=== PATIENT | female | born 1935 | race Two or more races ===

== ENCOUNTER 2019-01-08 06:36 | Inpatient (IN) | payer MEDICARE, MEDICAID ==
[~2019-01-08] VITALS: Ht 170.2 cm; Wt 73.5 kg
--- NOTE | 2019-01-08 06:42 | NUR ---
ED Nurse Note: Patient brought in by ambulance from home with complaints of recent fall. Patient cites that she was taken off all her medication because she is "healthy and old". Patient notes that she did not hit her head and her discomfort is with her left lower leg in addition to her bilateral knee arthritis. Will continue to monitor and service impending orders.
--- NOTE | 2019-01-08 06:54 | Emergency Room Report ---
History of Present Illness General Chief Complaint: Lower Extremity Injury Source: Patient Present Illness HPI 83-year-old female who presents status post fall out of bed last night. Patient states that she fell and was on for about 30 minutes prior to calling over EMS. [employer] was unable to enter home. Patient complains of left hip pain. She states severe pain with any movement. Patient's pain started after fall. Patient is unsure if she hit her head. But she denies any headache, nausea, vomiting, dizziness, tinnitus, or facial pain. Return to the emergency new patient also noted small abrasion to distal left heel. She is unsure when she last had her tetanus. Allergies: Coded Allergies: ACETAMINOPHEN (Verified Allergy, Unknown, 01/08/19) IBUPROFEN (Verified Allergy, Unknown, 01/08/19) PENICILLINS (Unverified Allergy, Unknown, 01/08/19) Uncoded Allergies: PENICILLIN (Allergy, Unknown, 01/08/19) Nursing Documentation-[facility] Hx Hypertension: Yes Review of Systems Constitutional: Denies: chills, fever Eye: Denies: eye pain, blurred vision Respiratory: Denies: cough, shortness of breath Cardiovascular: Denies: chest pain, palpitations Gastrointestinal: Denies: abdominal pain, nausea Musculoskeletal: Reports: joint pain; Denies: back pain Skin: Reports: dryness, other - wound; Denies: rash Neurological: Denies: headache, seizure, focal weakness Physical Exam Vital Signs Date Time Temp Pulse Resp B/P (MAP) Pulse Ox O2 Delivery O2 Flow Rate FiO2 01/08/19 06:31 98.6 99 18 142/92 (109) 96 Room Air Sp02 EP Interpretation: reviewed, normal General Appearance: no apparent distress, alert, GCS 15, non-toxic Head: normocephalic, atraumatic Eyes: bilateral eye normal inspection, bilateral eye PERRL ENT: hearing grossly normal, normal voice, dry mucus membranes Neck: full range of motion, supple/symm/no masses Respiratory: chest non-tender, lungs clear, normal breath sounds, speaking full sentences Cardiovascular #1: regular rate, rhythm, no edema Cardiovascular #2: 2+ radial (R), 2+ radial (L), 2+ dorsalis pedis (R), 2+ dorsalis pedis (L) Gastrointestinal: normal bowel sounds, non tender, soft, non-distended, no guarding, no rebound Rectal: deferred Musculoskeletal: back normal, other - Tenderness over left hip, left leg short and externally rotated, Neurologic: alert, oriented x3, responsive, sensory intact, speech normal Psychiatric: judgement/insight normal, mood/affect normal Skin: other - 1 cm abrasion to distal left heel, mild bleeding, controlled with pressure, no surrounding erythema. Medical Decision Making ER Course 83-year-old female status post fall at home. Patient lives alone siphoner unable to enter room brought in by [facility]. Patient found to have externally rotated shortened left lower extremity. Given unwitnessed fall will perform head CT as patient is above 83 years old and unable to recollect if she hit her head. Noted hip x-ray to have occult fracture possibly on left, however noted to have impacted fracture on the right-hand side where patient fell onto her right side. Discussed findings with radiologist Dr. Cheng patient to be admitted for hip fracture. 11:17 AM. Patient's care discussed with Dr. Larsen who accept patient for admission would like Dr. Anglin for orthopedic consultation. Page made out to Dr. Anglin. Laboratory Tests Test 01/08/19 07:54 01/08/19 08:07 White Blood Count 10.4 K/UL (4.8-10.8) Red Blood Count 4.94 M/UL (4.20-5.40) Hemoglobin 11.7 G/DL (12.0-16.0) L Hematocrit 35.8 % (37.0-47.0) L Mean Corpuscular Volume 72 FL (80-99) L Mean Corpuscular Hemoglobin 23.7 PG (27.0-31.0) L Mean Corpuscular Hemoglobin Concent 32.7 G/DL (32.0-36.0) Red Cell Distribution Width 14.4 % (11.6-14.8) Platelet Count 380 K/UL (150-450) Mean Platelet Volume 5.6 FL (6.5-10.1) L Neutrophils (%) (Auto) 66.7 % (45.0-75.0) Lymphocytes (%) (Auto) 9.6 % (20.0-45.0) L Monocytes (%) (Auto) 10.5 % (1.0-10.0) H Eosinophils (%) (Auto) 12.1 % (0.0-3.0) H Basophils (%) (Auto) 1.1 % (0.0-2.0) Sodium Level 137 MMOL/L (136-145) Potassium Level 3.3 MMOL/L (3.5-5.1) L Chloride Level 103 MMOL/L (98-107) Carbon Dioxide Level 26 MMOL/L (21-32) Anion Gap 9 mmol/L (5-15) Blood Urea Nitrogen 10 mg/dL (7-18) Creatinine 0.6 MG/DL (0.55-1.30) Estimate Glomerular Filtration Rate mL/min (>60) Glucose Level 112 MG/DL (74-106) H Calcium Level 9.5 MG/DL (8.5-10.1) Total Bilirubin 0.4 MG/DL (0.2-1.0) Aspartate Amino Transferase (AST) 16 U/L (15-37) Alanine Aminotransferase (ALT) 15 U/L (12-78) Alkaline Phosphatase 94 U/L (46-116) Total Creatine Kinase 43 U/L (26-308) Troponin I 0.003 ng/mL (0.000-0.056) Total Protein 9.2 G/DL (6.4-8.2) H Albumin 3.1 G/DL (3.4-5.0) L Globulin 6.1 g/dL Albumin/Globulin Ratio 0.5 (1.0-2.7) L Urine Color Yellow Urine Appearance Clear Urine pH 6 (4.5-8.0) Urine Specific Clarence 1.020 (1.005-1.035) Urine Protein Negative (NEGATIVE) Urine Glucose (UA) Negative (NEGATIVE) Urine Ketones 1+ (NEGATIVE) H Urine Blood 1+ (NEGATIVE) H Urine Nitrite Negative (NEGATIVE) Urine Bilirubin Negative (NEGATIVE) Urine Urobilinogen 4 MG/DL (0.0-1.0) H Urine Leukocyte Esterase Negative (NEGATIVE) Urine RBC 5-10 /HPF (0 - 2) H Urine WBC 0-2 /HPF (0 - 2) Urine Squamous Epithelial Cells Occasional /LPF Urine Amorphous Sediment Few /LPF (NONE) H Urine Bacteria Few /HPF (NONE) Urine Mucus Occasional /LPF EKG Diagnostic Results EKG Time: 06:54 EP Interpretation: Normal sinus rhythm rate of 83, no ST changes consistent with ischemia Other X-Ray Diagnostic Results Other X-Ray Diagnostic Results : X-Ray ordered: hip and pelvis # of Views/Limited Vs Complete: Complete Indication: Pain EP Interpretation: Yes Impression: Other - impacted right hip fx, left hip chronic changes ?occult fx CT/MRI/US Diagnostic Results CT/MRI/US Diagnostic Results : Imaging Test Ordered: Head CT Impression Impression: Chronic and age-related changes. Negative for acute intracranial bleed or mass effect. Last Vital Signs Date Time Temp Pulse Resp B/P (MAP) Pulse Ox O2 Delivery O2 Flow Rate FiO2 01/08/19 06:31 98.6 99 18 142/92 (109) 96 Room Air Disposition: ADMITTED INPATIENT Condition: Serious Scripts No Active Prescriptions or Reported Danos Mark Marin M.D. Jan 08, 2019 06:54
--- NOTE | 2019-01-08 07:03 | NUR ---
HAND-OFF: Report given to Torsten ALEXANDRE.
--- NOTE | 2019-01-08 07:35 | NUR ---
ED Nurse Note: Pt of to CT.
--- NOTE | 2019-01-08 08:11 | NUR ---
ED Nurse Note: Boold and urine sent to lab.
[2019-01-08 08:15] LABS: BASOPHILS % (AUTO) 1.1 % (0.0-2.0); EOSINOPHILS % (AUTO) 12.1 % (0.0-3.0); HEMATOCRIT 35.8 % (37.0-47.0); HEMOGLOBIN 11.7 G/DL (12.0-16.0); LYMPHOCYTES % (AUTO) 9.6 % (20.0-45.0); MEAN CORPUSCULAR VOLUME 72 FL (80-99); MONOCYTES % (AUTO) 10.5 % (1.0-10.0); NEUTROPHILS % (AUTO) 66.7 % (45.0-75.0); PLATELET COUNT 380 K/UL (150-450); RED BLOOD COUNT 4.94 M/UL (4.20-5.40); RED CELL DISTRIBUTION WIDTH 14.4 % (11.6-14.8); WHITE BLOOD COUNT 10.4 K/UL (4.8-10.8)
--- NOTE | 2019-01-08 08:16 | NUR ---
ED Nurse Note: Pt with x-ray tech
[2019-01-08] MEDS ORDERED: LORazepam Inj 2mg/ml 1ml IM ONE (08:30)
[2019-01-08 08:33] LABS: ANION GAP 9 mmol/L (5-15); BLOOD UREA NITROGEN 10 mg/dL (7-18); CALCIUM 9.5 MG/DL (8.5-10.1); CARBON DIOXIDE 26 MMOL/L (21-32); CHLORIDE 103 MMOL/L (98-107); CREATININE 0.6 MG/DL (0.55-1.30); POTASSIUM 3.3 MMOL/L (3.5-5.1); SODIUM 137 MMOL/L (136-145)
--- NOTE | 2019-01-08 08:33 | Diagnostic Imaging Report ---
Indications: Fall, head trauma Technique: Spiral acquisitions obtained through the brain. Angled axial and coronal 5 x 5 mm slices were reconstructed. Total dose length product 1300 mGycm. CTDI vol(s) 62 mGy. Dose reduction achieved using automated exposure control Comparison: None. Findings: No acute intracranial hemorrhage or edema. No mass effect or midline shift. Normal size ventricles and extra axial CSF spaces. There is periventricular deep white matter low-attenuation, consistent with chronic microvascular ischemic change. The calvarium is intact. The mastoids are clear. The visualized sinuses are clear. Impression: Chronic and age-related changes. Negative for acute intracranial bleed or mass effect. The CT scanner at [facility] is accredited by the [employer] and the scans are performed using protocols designed to limit radiation exposure to as low as reasonably achievable to attain images of sufficient resolution adequate for diagnostic evaluation.
--- NOTE | 2019-01-08 08:35 | NUR ---
HAND-OFF: Report given to BALDOMERO Canales.
[2019-01-08 08:37] LABS: ALANINE AMINOTRANSFERASE 15 U/L (12-78); ALBUMIN 3.1 G/DL (3.4-5.0); ALBUMIN/GLOBULIN RATIO 0.5 (1.0-2.7); ALKALINE PHOSPHATASE 94 U/L (46-116); ASPARTATE AMINO TRANSFERASE 16 U/L (15-37); BILIRUBIN,TOTAL 0.4 MG/DL (0.2-1.0); CREATINE KINASE 43 U/L (26-308)
[2019-01-08 08:37] LABS: APPEARANCE,URINE CLEAR; BILIRUBIN, URINE NEGATIVE (NEGATIVE); GLUCOSE, URINE (UA) NEGATIVE (NEGATIVE); KETONES,URINE 1+ (NEGATIVE); LEUKOCYTE ESTERASE ,URINE NEGATIVE (NEGATIVE); NITRITE,URINE NEGATIVE (NEGATIVE); PH,URINE 6 (4.5-8.0); PROTEIN,URINE NEGATIVE (NEGATIVE); UROBILINOGEN,URINE 4 MG/DL (0.0-1.0)
[2019-01-08 08:38] LABS: COLOR,URINE YELLOW
--- NOTE | 2019-01-08 08:40 | NUR ---
HAND-OFF: Report taken from Torsten ALEXANDRE. switching patients for orientation.No acute distress.
--- NOTE | 2019-01-08 09:00 | NUR ---
Pt states that caregiver Chelsea [phone] be notified when being discharged for a ride.
[2019-01-08 09:02] VITALS: BP 156/72
--- NOTE | 2019-01-08 09:43 | Diagnostic Imaging Report ---
Indication: Fall, left hip pain, unable to straighten left leg Technique: 2 views of the left hip, one view the pelvis Comparison: none Findings: Exam is very limited, due to body habitus, inability to position patient optimally, osteoporosis, and overlying bowel gas. The bones are osteoporotic. There is a band of sclerosis along the right femoral neck suggesting an impacted fracture. The left hip is poorly visualized. No gross fracture or dislocation demonstrated. There are degenerative changes of the left hip. There are also degenerative changes of the right hip. There is considerable bowel gas. There are degenerative changes of the lumbosacral junction Impression: Very limited exam, as described No gross acute bony trauma of the left hip. However, note that in elderly osteoporotic patients and in particular given the limitations of this particular exam, nondisplaced hip or pelvic fractures can easily be occult Evidence of impacted fracture of the right femoral neck Bilateral degenerative changes Findings discussed by phone with Dr. Marin at the time of interpretation
--- NOTE | 2019-01-08 09:58 | Diagnostic Imaging Report ---
Indication: Cough Technique: One view of the chest Comparison: none Findings: Lungs and pleural spaces are clear. The heart size is normal. Bones are osteoporotic. There are degenerative changes of the thoracic spine Impression: No acute process
[2019-01-08 12:00] VITALS: BP 140/66
--- NOTE | 2019-01-08 12:21 | Diagnostic Imaging Report ---
Indication: Pain, status post trauma Technique: 2 views of the right hip Comparison: Pelvic radiograph performed one and one half hours earlier Findings: Band of sclerosis seen along the right femoral head neck junction is less apparent on the current exam. There is some slight irregularity of the superolateral head neck junction. There is extensive degenerative change of the hip joint. The bones are osteoporotic Impression: No definite acute bony trauma, but difficult to confidently exclude fracture of the femoral head neck junction. If clinically indicated, cross-sectional imaging may be useful to clarify
--- NOTE | 2019-01-08 12:38 | NUR ---
ED Nurse Note: Dr Mooney at bedside. Spoke to MD CRISTIAN states CT results need to come in before patient admitted to [facility].
[2019-01-08] MEDS ORDERED: Morphine Sulfate 2mg/ml Inj(IV/IM USE ONLY) IVP PRN (12:45)
[2019-01-08] MEDS ORDERED: Heparin 5000 units/ml inj SUBQ SCH (13:00)
--- NOTE | 2019-01-08 14:14 | Diagnostic Imaging Report ---
Indication: Left hip pain, status post fall, abnormal right hip on prior radiographs Technique: Noncontrast spiral acquisitions obtained through the pelvis. Multiplanar reconstructions generated. Total dose length product 1133 mGycm. CTDIvol(s) 29 mGy. Dose reduction achieved using automated exposure control Comparison: Reference made to plain radiographs of earlier the same day Findings: The left hip is rotated posteriorly. However, no definite fracture deformity is evident. No acute fracture line is demonstrated. There are severe degenerative changes of the left hip, with marked peripheral osteophytes on both sides of the hip joint, subchondral sclerosis and subchondral cyst formation. In addition, there does appear to be in place is ankylosis of the left femoral head and acetabulum. Less advanced was still somewhat extensive degenerative changes of the right hip are noted. There is likewise joint space loss, subchondral sclerosis, subchondral cyst formation as well as osteophytes and some remodeling of the acetabular articular surface. No definite acute fracture demonstrated. No pelvic fracture demonstrated. No significant soft tissue contusion is demonstrated. The uterus is absent. The included pelvic viscera are otherwise unremarkable. Impression: No definite acute bony trauma Extensive degenerative changes, as detailed above The CT scanner at [facility] is accredited by the [employer] and the scans are performed using protocols designed to limit radiation exposure to as low as reasonably achievable to attain images of sufficient resolution adequate for diagnostic evaluation.
--- NOTE | 2019-01-08 15:16 | NUR ---
ED Nurse Note: per Dr. Marin, pt is ok to go floor unit.
--- NOTE | 2019-01-08 15:32 | NUR ---
Pt's caregiver Chelsea notified of pts admission. Report given to Kaci ALEXANDRE. Pt reaffirmed that not taking any home meds.
[2019-01-08 16:00] VITALS: BP 137/75
--- NOTE | 2019-01-08 16:00 | NUR ---
NURSE NOTES: Pt admitted to unit. Transferred from [facility] to [facility] without incident with 2 person assist. Patient is stable. AOx4, able to verbalize needs. Skin is clean and dry. Patient's body is dry and flaky, patient stated, "I have eczema all over". Patient's caregiver contacted regarding admission and allergies. Patient stated, "I made a mistake, I'm not allergic to acetaminophen." Allergies confirmed by caregiver Chelsea who verbalized that patient does not have an allergy to acetaminophen and takes Tylenol at home as needed without displaying any reactions. Patient oriented to room, call light, and unit. Patient encouraged to use call light for assistance, verbalized understanding. Patient is in bed in locked and lowest position with call light within reach, all safety measures provided. Will continue to monitor. All needs met at this time.
[2019-01-08] MEDS: Heparin 5000 units/ml inj SUBQ SCH (16:53)
[2019-01-08] MEDS: Docusate 100mg cap ORAL SCH (17:21)
--- NOTE | 2019-01-08 18:15 | History and Physical Report ---
DATE OF ADMISSION: 01/08/2019 CHIEF COMPLAINT: Right hip fracture HISTORY OF PRESENT ILLNESS: The patient is an pleasant 83-year-old female. She has a prior history of hypertensive heart disease but according to her she has been taken off of her antihypertensive. She was in bed when she rolled out and actually fell onto her right hip. She had severe pain, was unable to ambulate, presented to the emergency room. On evaluation there, x-ray showed an impacted right hip fracture. She is now admitted for further evaluation and care. PAST MEDICAL HISTORY: As above. PAST SURGICAL HISTORY: None. CURRENT MEDICATIONS: None. FAMILY HISTORY: Significant for sister who had bypass surgery x2 as well as another sister who heart arrhythmias. SOCIAL HISTORY: Negative for tobacco, ethanol, or drugs. REVIEW OF SYSTEMS: GENERAL: No fevers or chills. HEENT: No headaches or visual changes. CARDIOPULMONARY: No chest pain or shortness of breath. GASTROINTESTINAL: No nausea or vomiting. GENITOURINARY: No urgency, frequency. MUSCULOSKELETAL: No joint pain or swelling. Positive right hip pain. NEUROLOGIC: No evidence of seizures. PHYSICAL EXAMINATION: VITAL SIGNS: Temperature 98 degrees, pulse 79, respirations 18, and blood pressure 140/66. GENERAL: The patient is well developed, no apparent distress. HEART: Regular rate and rhythm. LUNGS: Clear. ABDOMEN: Soft, nontender, nondistended. EXTREMITIES: Without clubbing or cyanosis. The patient has minimal range of motion in the right hip due to pain. LABORATORY AND DIAGNOSTIC DATA: EKG showed sinus rhythm. Sodium 137, potassium 3.3. Troponin 0.003. Urine was clear. Head CT was negative. ASSESSMENT: This is a pleasant female with prior history of hypertensive heart disease admitted with mechanical fall out of bed and impacted right hip fracture. PLAN: Check coagulations. Orthopedics consultation. Cardiology clearance. We will continue IV and oral pain medications as needed. Further plan and care will be determined after discussion with the consulting orthopedist. Jason Husain M.D. DR: Devin JOB#: [id number] CC:
--- NOTE | 2019-01-08 19:29 | NUR ---
NURSE NOTES: Patient asleep in bed, no respiratory distress noted, no sign of pain. Call light in reach. Bed in lowest position, lock engaged and alarm on. Will continue to monitor.
--- NOTE | 2019-01-08 19:30 | NUR ---
HAND-OFF: Report given to Carey ALEXANDRE. Patient is stable.
[2019-01-08 20:00] VITALS: BP 113/63
[2019-01-08 21:21] LABS: INR 1.1 (0.9-1.1)
[2019-01-09] VITALS: BP 116/67
--- NOTE | 2019-01-09 01:45 | Consultation ---
DATE OF CONSULTATION: 01/08/2019 ORTHOPEDIC CONSULTATION CONSULTING PHYSICIAN: Walter Anglin M.D. CHIEF COMPLAINT: Right hip pain. HISTORY OF PRESENT ILLNESS: The patient is a pleasant 83-year-old female who fall. She was diagnosed with a femoral neck fracture. Orthopedic consultation was obtained for further care and recommendation. PAST MEDICAL HISTORY: Reviewed from the intake chart. PAST SURGICAL HISTORY: Reviewed from the intake chart. MEDICATIONS: Reviewed from the intake chart. PHYSICAL EXAMINATION: GENERAL: The patient is resting comfortably in examination bed. She reports minimal pain. VITAL SIGNS: Afebrile. Stable vital signs. PELVIC: Right hip examination shows pain with internal and external rotation. Posterior calf is soft. Neurovascular exam is normal. Left hip examination shows it is internally rotated hip. Neurovascular exam is grossly intact. CT scan of the hip shows a fracture through the femoral head, rather than the neck. She has pretty end-stage arthritis. Left hip shows some general end-stage arthritis with internal deformity of the left hip. DISCUSSION: At this point, I had a lengthy discussion with the patient. She does have a fracture, but unfortunately the location of the fracture does not make it amenable to closed reduction and percutaneous pinning. The only option is consideration for either hemiarthroplasty or in her case total hip arthroplasty given the superior arthritis that she has. At this point, the patient would like to see how she does without surgery, which I do not think is unreasonable. In the worst case scenario, if she has more pain or difficulty performing activities of daily living, then the surgery would still be the same regardless. At this point, the patient actually feels comfortable and therefore we will try and attempt to conservative treatment. She can be partial weightbearing on the right leg as tolerated with a walker. If she has significant pain and inability to ambulate, then she would be a candidate for total hip arthroplasty. Walter Anglin M.D. DR: AKIL JOB#: [id number] CC: DEVIKA
--- NOTE | 2019-01-09 02:00 | Consultation ---
DATE OF CONSULTATION: 01/08/2019 CARDIOLOGY CONSULTATION CONSULTING PHYSICIAN: Kingsley Larsen M.D. REQUESTING PHYSICIAN: Jason Husain M.D. REASON: Hip fracture, evaluate for kathryn-operative cardiovascular risk assessment. HISTORY OF PRESENT ILLNESS: This is an 83-year-old female. She has a history of hypertension, but has been off medications for several months due to low range blood pressure, not requiring therapy. She had been in her usual state of health. Last night, she apparently fell out of bed. She was unable to ambulate thereafter, came to the emergency room and was noted to have an impacted right hip fracture by x-ray study. She denied loss of consciousness or other trauma at the time of the event is noted. PAST MEDICAL HISTORY: Includes prior appendectomy, hysterectomy, and hypertension as well as osteoarthritis and chronic eczema. ALLERGIES: None. MEDICATIONS: Reviewed and reconciled. SOCIAL HISTORY: Negative for smoking, alcohol, or substance abuse. FAMILY HISTORY: Notable for sister with coronary artery disease and another sister with irregular heart beats. REVIEW OF SYSTEMS: No fevers or chills. No history of asthma or abnormal blood clotting. No history of seizure or stroke. No history of diabetes or thyroid impairment. No change in bowel habits. No history of kidney dysfunction, incontinence, or dysuria. PHYSICAL EXAMINATION: VITAL SIGNS: Afebrile, blood pressure 142/92, pulse 99, respirations 18, and oxygen saturation room air 96%. SKIN: With diffuse eczema, abrasion to right heel. HEENT: Conjunctivae pink. Oropharynx clear. NECK: Supple. Jugular venous pressure normal. No bruits or thyromegaly. LUNGS: Clear. BREASTS: No breast masses. CARDIAC: Regular rhythm and rate. Normal S1, S2 with a fourth heart sound. ABDOMEN: Soft, nontender. EXTREMITIES: Without edema. There is slight internal rotation of the right hip. No open wound. LABORATORY AND DIAGNOSTIC DATA: White count 10, hemoglobin 11.7. Potassium 3.3. Troponin negative. Glucose 112, BUN 10, creatinine 0.6. Albumin 3.1. Chest x-ray with no acute process. Head CT with no acute process. IMPRESSION: 1. Non-syncopal fall. 2. Acute right hip fracture. 3. History of hypertension, now reportedly stable off medications. 4. Hypokalemia. 5. Mild protein-calorie malnutrition. PLAN: 1. Hydration. 2. Potassium replacement. 3. Check electrocardiogram. 4. DVT prophylaxis. 5. Skin care. 6. Protein supplement. 7. Await final studies, but would not expect any increased cardiovascular risk under general anesthesia for orthopedic surgery of this right hip fracture. Kingsley Larsen M.D. DR: PB JOB#: [id number] CC:
[2019-01-09 04:00] VITALS: BP 102/59
[2019-01-09 06:05] LABS: HEMATOCRIT 33.5 % (37.0-47.0); HEMOGLOBIN 11.1 G/DL (12.0-16.0); MEAN CORPUSCULAR VOLUME 72 FL (80-99); PLATELET COUNT 385 K/UL (150-450); RED BLOOD COUNT 4.64 M/UL (4.20-5.40); RED CELL DISTRIBUTION WIDTH 14.4 % (11.6-14.8); WHITE BLOOD COUNT 7.7 K/UL (4.8-10.8)
[2019-01-09 06:43] LABS: ALANINE AMINOTRANSFERASE 9 U/L (12-78); ALBUMIN 2.5 G/DL (3.4-5.0); ALBUMIN/GLOBULIN RATIO 0.5 (1.0-2.7); ALKALINE PHOSPHATASE 79 U/L (46-116); ANION GAP 5 mmol/L (5-15); ASPARTATE AMINO TRANSFERASE 14 U/L (15-37); BILIRUBIN,TOTAL 0.4 MG/DL (0.2-1.0); BLOOD UREA NITROGEN 6 mg/dL (7-18); CALCIUM 9.1 MG/DL (8.5-10.1); CARBON DIOXIDE 26 MMOL/L (21-32); CHLORIDE 104 MMOL/L (98-107); CREATININE 0.7 MG/DL (0.55-1.30); POTASSIUM 3.8 MMOL/L (3.5-5.1); SODIUM 135 MMOL/L (136-145)
--- NOTE | 2019-01-09 07:55 | NUR ---
NURSE NOTES: Received reprot from BALDOMERO Bacon. Patient in bed resting, no active s/s cardiac, respiratory distress noticed at this time. Patient on room air, AOx4, IV on right AC 20G, asymptomatic, patent, intact. Bd in lowest position, side rails upx3, call light within reach, bed alarm on. Endorsed partial weight bearing on right leg. Will continue to monitor.
[2019-01-09 08:00] VITALS: BP 122/68
--- NOTE | 2019-01-09 08:13 | NUR ---
HAND-OFF: Report given to BALDOMERO Beard.
[2019-01-09] MEDS: Vitamin D 1000 IU Tab ORAL SCH (08:25)
[2019-01-09] MEDS: Docusate 100mg cap ORAL SCH ×2 (08:25→17:04)
[2019-01-09] MEDS: Heparin 5000 units/ml inj SUBQ SCH ×2 (08:26→20:31)
--- NOTE | 2019-01-09 08:32 | General Progress Note ---
Assessment/Plan Problem List: (1) Hip fracture, right ICD Codes: S72.001A - Fracture of unspecified part of neck of right femur, initial encounter for closed fracture SNOMED: 594923227 (2) Multiple injuries due to trauma ICD Codes: T07.XXXA - Unspecified multiple injuries, initial encounter SNOMED: 168009064 Status: stable Assessment/Plan: d/w ortho- has fracture of right femoral head but denies significant pain. will mobilize as tolerated with therapy may need surgical intervention depending how pt does with therapy Subjective ROS Limited/Unobtainable: No Constitutional: Reports: no symptoms HEENT: Reports: no symptoms Cardiovascular: Reports: no symptoms Respiratory: Reports: no symptoms Gastrointestinal/Abdominal: Reports: no symptoms Genitourinary: Reports: no symptoms Neurologic/Psychiatric: Reports: no symptoms Endocrine: Reports: no symptoms Hematologic/Lymphatic: Reports: no symptoms Allergies: Coded Allergies: IBUPROFEN (Verified Allergy, Unknown, 01/08/19) PENICILLINS (Unverified Allergy, Unknown, 01/08/19) Uncoded Allergies: PENICILLIN (Allergy, Unknown, 01/08/19) All Systems: reviewed and negative except above Subjective no new complaints. +hip pain. Objective Last 24 Hour Vital Signs Date Time Temp Pulse Resp B/P (MAP) Pulse Ox O2 Delivery O2 Flow Rate FiO2 01/09/19 04:00 97.8 91 18 102/59 (73) 97 01/09/19 00:00 98.8 88 19 116/67 (83) 97 01/08/19 21:00 Room Air 01/08/19 20:00 98.8 92 18 113/63 (80) 98 01/08/19 16:00 97.3 87 20 137/75 (95) 97 01/08/19 15:59 Room Air 01/08/19 15:44 98.7 82 20 128/68 100 Room Air 01/08/19 12:00 98.6 79 18 140/66 100 Room Air 01/08/19 09:46 81 19 Room Air 100 01/08/19 09:02 98.7 81 19 156/72 100 Room Air Intake and Output 01/08/19 01/09/19 19:00 07:00 Intake Total 500 ml Balance 500 ml IV Total 500 ml # Voids 1 1 Laboratory Tests 01/08/19 20:00: Prothrombin Time 11.2, Prothromb Time International Ratio 1.1, Activated Partial Thromboplast Time 26 01/09/19 05:00: White Blood Count 7.7, Red Blood Count 4.64, Hemoglobin 11.1L, Hematocrit 33.5L , Mean Corpuscular Volume 72L, Mean Corpuscular Hemoglobin 24.0L, Mean Corpuscular Hemoglobin Concent 33.2, Red Cell Distribution Width 14.4, Platelet Count 385, Mean Platelet Volume 5.6L, Neutrophils (%) (Auto) , Lymphocytes (%) ( Auto) , Monocytes (%) (Auto) , Eosinophils (%) (Auto) , Basophils (%) (Auto) , Neutrophils % (Manual) [Pending], Lymphocytes % (Manual) [Pending], Platelet Estimate [Pending], Platelet Morphology [Pending], Sodium Level 135L, Potassium Level 3.8, Chloride Level 104, Carbon Dioxide Level 26, Anion Gap 5, Blood Urea Nitrogen 6L, Creatinine 0.7, Estimat Glomerular Filtration Rate , Glucose Level 110H, Calcium Level 9.1, Magnesium Level 2.2, Total Bilirubin 0.4, Aspartate Amino Transf (AST/SGOT) 14L, Alanine Aminotransferase (ALT/SGPT) 9L, Alkaline Phosphatase 79, Total Protein 8.0, Albumin 2.5L, Globulin 5.5, Albumin/Globulin Ratio 0.5L, Thyroid Stimulating Hormone (TSH) 2.268 Height (Feet): 5 Height (Inches): 7.00 Weight (Pounds): 162 General Appearance: WD/WN, alert Neck: supple Cardiovascular: regular rhythm Respiratory/Chest: chest wall non-tender, lungs clear, normal breath sounds, no respiratory distress Abdomen: normal bowel sounds, non tender, soft, no organomegaly Edema: no edema noted Arm (L), no edema noted Arm (R), no edema noted Leg (L), no edema noted Leg (R), no edema noted Pedal (L), no edema noted Pedal (R), no edema noted Generalized Jason Husain MD Jan 09, 2019 08:32
[2019-01-09 12:00] VITALS: BP 113/62
--- NOTE | 2019-01-09 12:19 | NUR ---
NURSE NOTES: Spoke to regarding patient and new order received. Order read back and carried out.
--- NOTE | 2019-01-09 14:43 | NUR ---
P.T Note : Jason received from Dr. Anglin. Pt on 50% PWB RLE secondary to R hip fx. P.T evaluation completed and treatment initiated. Please refer to P.T evaluation for current functional status. Pt is alert, O x 4 , pleasant and cooperative. Pt reports c/o pain and stiffness particularly on the L hip with movement more than the R hip despite findings of the R femoral neck Fx 06/28 . Pt needed extended time and MIN A X 1 to initiate and complete spine to/from sitting and sitting to/from standing. Pt was able to ambulate short distance using the FWW , MIN A x 1 ( approx. 8 steps ) presenting slow pace and labored gait. Overall Fair endurance/tolerance to activities. Pt will benefit from skilled P.T service to improve strength, balance and activity tolerance to increase mobility independence and be able to comply with PWB compliance on RLE. Recommend SNF for further rehab intervention VS home with P.T.
[2019-01-09 16:00] VITALS: BP 121/69
--- NOTE | 2019-01-09 17:03 | Cardiology Report ---
APPROVED REPORT EKG Measurement Heart [id number] Normal sinus rhythm Right atrial enlargement Cannot rule out Anterior infarct, age undetermined Abnormal ECG
--- NOTE | 2019-01-09 19:30 | NUR ---
HAND-OFF: Report given to BALDOMERO Varela.
[2019-01-09 20:00] VITALS: BP 132/76
[2019-01-10 00:14] VITALS: BP 136/74
--- NOTE | 2019-01-10 00:42 | NUR ---
NURSE NOTE: Pt is A/Ox4 with stable VS. Orders reviewed and physical assessment completed. Pt complained of pain in her left leg but denied offer of PRN pain meds. Pt expressed desire to get rest. Bed alarm is activated and call cruz is within reach. Pt is continent x2. Pt instructed to call for assistance when feeling the urge to void vs voiding in the bed, pt verbalized understanding. Will continue to monitor.
[2019-01-10 04:10] VITALS: BP 136/73
--- NOTE | 2019-01-10 04:30 | Progress Note ---
DATE: 01/09/2019 CARDIOLOGY PROGRESS NOTE SUBJECTIVE: The patient is not having any significant pain. She is considering what she would want to pursue right hemiarthroplasty versus conservative management and healing at home with partial weightbearing. A preoperative echocardiogram was performed revealing normal ejection fraction, mild mitral regurgitation, and normal PA systolic pressure. OBJECTIVE: VITAL SIGNS: Blood pressure 113/62, heart rate 91, respirations 16, afebrile. LUNGS: Clear. CARDIAC: Regular. Normal S1, S2. A 1/6 systolic apical murmur. ABDOMEN: Soft. EXTREMITIES: No edema. LABORATORY DATA: White count 7.7, hemoglobin 11.1. Potassium 3.8, magnesium 2.2. Albumin 2.5. IMPRESSION: 1. Mechanical fall. 2. Right hip fracture. 3. Hypokalemia, corrected. 4. Hypertension, controlled. 5. Moderate to severe protein-calorie malnutrition requiring protein supplements. 6. Limited weightbearing due to fracture. PLAN: 1. Protein supplement. 2. Pain control as needed. 3. No additional antihypertensives presently required. 4. DVT prophylaxis. Kingsley Larsen M.D. DR: RADHA JOB#: [id number] CC:
--- NOTE | 2019-01-10 05:30 | Progress Note ---
DATE: 01/09/2019 SUBJECTIVE: The patient is doing well. She had been in some therapy today where she was getting them at the bedside. She reports minimal pain. OBJECTIVE: GENERAL: Examination shows some pain with internal and external rotation of the right hip. The patient is resting comfortably on the exam room table. VITAL SIGNS: Afebrile. Stable vital signs. ASSESSMENT: Right femoral head fracture. DISCUSSION: At this point, I discussed with her again that she does have femoral head fracture. The only treatment for this given her severe arthritis is consideration for total hip arthroplasty. At this point, she wants to continue with conservative treatment and see how much her pain she truly is. She got up today with a therapist at the bedside and was much discomfort. I discussed with her we will continue to monitor and see how she does from clinical point of view. If she has more pain and cannot tolerate conservative treatment, then consideration for total hip arthroplasty will be reasonable. Alternatively, if she does not not have significant pain, then she can continue partial weightbearing on the right leg understanding that at some point she may develop avascular necrosis of the head, which may ultimately necessitate total hip arthroplasty. Walter Anglin M.D. DR: WANDA JOB#: [id number] CC: DEVIKA
--- NOTE | 2019-01-10 07:22 | NUR ---
HAND-OFF: Report given to
--- NOTE | 2019-01-10 07:46 | General Progress Note ---
Assessment/Plan Problem List: (1) Hip fracture, right ICD Codes: S72.001A - Fracture of unspecified part of neck of right femur, initial encounter for closed fracture SNOMED: 052791488 (2) Multiple injuries due to trauma ICD Codes: T07.XXXA - Unspecified multiple injuries, initial encounter SNOMED: 360815256 Status: stable Assessment/Plan: pain rx pt/ot dvt prophylaxis still undecided about surgery Subjective ROS Limited/Unobtainable: No Constitutional: Reports: no symptoms HEENT: Reports: no symptoms Cardiovascular: Reports: no symptoms Respiratory: Reports: no symptoms Gastrointestinal/Abdominal: Reports: no symptoms Genitourinary: Reports: no symptoms Neurologic/Psychiatric: Reports: no symptoms Endocrine: Reports: no symptoms Hematologic/Lymphatic: Reports: no symptoms Allergies: Coded Allergies: IBUPROFEN (Verified Allergy, Unknown, 01/08/19) PENICILLINS (Unverified Allergy, Unknown, 01/08/19) Uncoded Allergies: PENICILLIN (Allergy, Unknown, 01/08/19) All Systems: reviewed and negative except above Subjective no new complaints. +hip pain. only able to walk 8 steps with therapist due to severe pain Objective Last 24 Hour Vital Signs Date Time Temp Pulse Resp B/P (MAP) Pulse Ox O2 Delivery O2 Flow Rate FiO2 01/10/19 04:10 98.6 89 16 136/73 (94) 97 01/10/19 00:14 99.0 86 16 136/74 (94) 97 01/09/19 21:00 Room Air 01/09/19 20:00 98.8 87 16 132/76 (94) 98 01/09/19 16:00 98.1 87 15 121/69 (86) 97 01/09/19 12:00 98.2 91 16 113/62 (79) 97 01/09/19 09:00 Room Air 01/09/19 08:00 98.4 86 16 122/68 (86) 97 Intake and Output 01/09/19 01/10/19 19:00 07:00 Intake Total 200 ml Balance 200 ml Intake Oral 200 ml # Voids 4 1 Height (Feet): 5 Height (Inches): 7.00 Weight (Pounds): 162 General Appearance: WD/WN, alert Neck: supple Cardiovascular: normal rate Respiratory/Chest: lungs clear Abdomen: normal bowel sounds, non tender, soft, no organomegaly Edema: no edema noted Arm (L), no edema noted Arm (R), no edema noted Leg (L), no edema noted Leg (R), no edema noted Pedal (L), no edema noted Pedal (R), no edema noted Generalized Jason Husain MD Jan 10, 2019 07:46
[2019-01-10 08:00] VITALS: BP 127/77
--- NOTE | 2019-01-10 08:00 | NUR ---
NURSE NOTES: Received report from Nichole RN, pt a/a/o laying in bed eating breakfast with no signs of distress or other issues at this time. IV on the left AC gauge#20 heplock. per report pt able to give some steps with staff assistance. call light within reach, bed in lowest position. side rales up x2. I will f/u as needed.
[2019-01-10] MEDS: Docusate 100mg cap ORAL SCH ×2 (08:43→17:21)
[2019-01-10] MEDS: Vitamin D 1000 IU Tab ORAL SCH (08:43)
[2019-01-10] MEDS: Heparin 5000 units/ml inj SUBQ SCH ×2 (08:44→20:51)
--- NOTE | 2019-01-10 08:54 | NUR ---
CASE MANAGEMENT:REVIEW 83 YR OLD FEMALE BIBA FROM HOME CC; FALL SI: HIP FRACTURE 98.6 99 18 142/92 96% ON RA K-3.3 IS: 500CC NS BOLUS ATIVAN IM KCL PO XRAY HIP : TO MED/SURG 3 EAST PLAN: ORTHO CONSULT
--- NOTE | 2019-01-10 09:06 | NUR ---
DISCHARGE PLANNING PATIENT HAS BEEN REFERRED TO [facility] T: [phone] F: [phone] CLINICALS FAXED
[2019-01-10 12:00] VITALS: BP 117/67
[2019-01-10 16:00] VITALS: BP 132/73
--- NOTE | 2019-01-10 19:33 | NUR ---
HAND-OFF: Report given to Nichole ALEXANDRE. pt ion stable condition.
[2019-01-10 20:30] VITALS: BP 139/73
[2019-01-11 00:16] VITALS: BP 122/68
--- NOTE | 2019-01-11 02:00 | Progress Note ---
DATE: 01/10/2019 CARDIOLOGY PROGRESS NOTE SUBJECTIVE: The patient had some hip pain with ambulation today. She still is requesting to avoid surgery if she can. She was advised as to the risk of limited mobility for several weeks to heal including the risk of DVT. OBJECTIVE: VITAL SIGNS: Blood pressure 136/73, pulse 89, and respirations 16. LUNGS: Clear. CARDIAC: Regular. Normal S1, S2. ABDOMEN: Soft. EXTREMITIES: No edema. IMPRESSION: 1. Stable blood pressure parameters off all medications. 2. Right hip fracture secondary to mechanical fall. 3. Microcytic anemia. 4. Hypokalemia, corrected. 5. Moderate protein-calorie malnutrition. PLAN: 1. Await final decision regarding surgery. 2. Check iron panel. 3. Recheck potassium and magnesium levels. 4. Mobilization with limited weightbearing. 5. Protein supplement. 6. No current indication for additional antihypertensive drugs. Kingsley Larsen M.D. DR: ABEL JOB#: [id number] CC:
[2019-01-11 04:01] VITALS: BP 155/84
[2019-01-11 06:18] LABS: BASOPHILS % (AUTO) 0.9 % (0.0-2.0); EOSINOPHILS % (AUTO) 11.6 % (0.0-3.0); HEMATOCRIT 31.1 % (37.0-47.0); HEMOGLOBIN 10.2 G/DL (12.0-16.0); LYMPHOCYTES % (AUTO) 10.9 % (20.0-45.0); MEAN CORPUSCULAR VOLUME 72 FL (80-99); MONOCYTES % (AUTO) 11.3 % (1.0-10.0); NEUTROPHILS % (AUTO) 65.3 % (45.0-75.0); PLATELET COUNT 312 K/UL (150-450); RED BLOOD COUNT 4.31 M/UL (4.20-5.40); RED CELL DISTRIBUTION WIDTH 14.5 % (11.6-14.8); WHITE BLOOD COUNT 9.4 K/UL (4.8-10.8)
[2019-01-11 06:30] LABS: % IRON SATURATION 9 % (15-50); IRON 26 ug/dL (50-175); TOTAL IRON BINDING CAPACITY 284 ug/dL (250-450)
[2019-01-11 06:37] LABS: ANION GAP 9 mmol/L (5-15); BLOOD UREA NITROGEN 7 mg/dL (7-18); CALCIUM 8.8 MG/DL (8.5-10.1); CARBON DIOXIDE 25 MMOL/L (21-32); CHLORIDE 103 MMOL/L (98-107); CREATININE 0.6 MG/DL (0.55-1.30); POTASSIUM 3.7 MMOL/L (3.5-5.1); SODIUM 137 MMOL/L (136-145)
[2019-01-11] MEDS ORDERED: CLONIDINE HCL0.1 MG ORAL (07:23)
[2019-01-11] MEDS ORDERED: COLACE100 MG ORAL (07:23)
[2019-01-11] MEDS ORDERED: HEPARIN SO5000 UNIT2 SUBQ (07:23)
[2019-01-11] MEDS ORDERED: ACETAMINOPHEN325 M1 ORAL (07:23)
[2019-01-11] MEDS ORDERED: VITAMIN D325 MCG ORAL (07:23)
[2019-01-11] MEDS ORDERED: MORPHINE SU2 MG/1 M1 IVP (07:23)
--- NOTE | 2019-01-11 07:24 | NUR ---
HAND-OFF: Report given to Zeeshan.
--- NOTE | 2019-01-11 07:25 | NUR ---
NURSE NOTES: Received pt in bed, AAO x 3. Room air. No c/o of pain/distress. IV n R AC 20g intact and patent, with saline lock. Bed in the lowest, locked, and alarm primary montessori teacher light within reach. Will continue to monitor
[2019-01-11 08:00] VITALS: BP 126/75
--- NOTE | 2019-01-11 08:30 | Discharge Summary ---
DATE OF ADMISSION: 01/08/2019 DATE OF DISCHARGE: 01/11/2019 ADMISSION DIAGNOSES: 1. Right hip fracture. 2. History of hypertension. 3. Osteoarthritis. DISCHARGE DIAGNOSES: 1. Right hip fracture. 2. History of hypertension. 3. Osteoarthritis. HOSPITAL COURSE: The patient is a pleasant female, who sustained a fall out of bed. She fell onto her right hip. She was diagnosed with a fracture of the head of the right femur. She was seen by Orthopedics, who recommended a total hip arthroplasty regarding the patient's advanced osteoarthritis. The patient declined. She did have some pain, but was able to ambulate. In light of her symptoms and her resistance to surgery, the orthopedic discussed further conservative treatment with therapy. If she failed, she is agreeable to undergoing a full total hip arthroplasty. She will go to a [facility] for therapy. She will be followed closely there. If she fails, she will be referred back to the orthopedic surgeon for a definitive total hip arthroplasty. The patient was in agreement with this plan of care. DISCHARGE MEDICATIONS: Please see discharge medication list for discharge medications. DIET: Regular diet. ACTIVITIES: Ad-herminio. Jason Husain M.D. DR: LALITA JOB#: [id number] CC:
[2019-01-11] MEDS: Vitamin D 1000 IU Tab ORAL SCH (09:27)
[2019-01-11] MEDS: Docusate 100mg cap ORAL SCH (09:27)
[2019-01-11] MEDS: Heparin 5000 units/ml inj SUBQ SCH (09:28)
[2019-01-11 12:00] VITALS: BP 115/62
--- NOTE | 2019-01-11 14:10 | NUR ---
NURSE NOTES: Patient was discharged to [facility] via ambulance in stable condition. Report was given to BALDOMERO Nguyen. ID and IV was removed. No s/s of infection on the removal site. Skin intact. Notified family member for patient's discharge. Belongings were accounted for. Prescriptions and discharge instructions were given.
--- NOTE | 2019-01-11 18:30 | Progress Note ---
DATE: 01/11/2019 CARDIOLOGY PROGRESS NOTE SUBJECTIVE: The patient has no chest pain. No shortness of breath. Hip pain is somewhat better. She is mobilizing. She is having difficulty with partial weight bearing. She will need additional therapy for that. PHYSICAL EXAMINATION: VITAL SIGNS: Blood pressure control adequate off medications 126/75, . T-max 99.6. LUNGS: Clear. CARDIAC: Regular. ABDOMEN: Soft. EXTREMITIES: No edema. Hips without open wounds. LABORATORY AND DIAGNOSTIC DATA: Chemistry panel within normal limits. Iron panel reveals saturation of 9%, hemoglobin is 10.2. IMPRESSION: 1. Right hip fracture due to mechanical fall. 2. History of hypertension now stable off medications. 3. Iron-deficiency anemia. 4. Vitamin D deficiency. 5. Osteoarthritis. 6. Eczema. PLAN: 1. Rehabilitation. 2. Pain control. 3. Vitamin supplementation. 4. Readmitted for arthroplasty if the patient is unable to tolerate pain and partial right leg weightbearing status. Kingsley Larsen M.D. DR: Raymundo JOB#: [id number] CC:
--- NOTE | 2019-01-13 10:44 | Cardiology Report ---
APPROVED REPORT EXAM: Two-dimensional and M-mode echocardiogram with Doppler and color Doppler. INDICATION Preop eval M-Mode DIMENSIONS IVSd1.1 (0.7-1.1cm)Left Atrium (MM)3.6 (1.6-4.0cm) LVDd3.9 (3.5-5.6cm)Aortic Root3.0 (2.0-3.7cm) PWd1.1 (0.7-1.1cm)Aortic Cusp Exc.1.7 (1.5-2.0cm) LVDs2.6 (2.5-4.0cm) PWs1.4 cm Normal left ventricular chamber size, systolic function and wall motion. Left ventricular ejection fraction estimated to be 65 %. Borderline left ventricular hypertrophy. Anterior Echo-free space, may be due to pericardial fat or effusion. Left atrial size at upper limits of normal. Right cardiac chamber sizes are within normal limits. Focal aortic valve sclerosis with adequate cusp excursion. Thickened mitral valve leaflets with normal excursion. Mitral annulus and aortic root calcification. Pulmonic valve not well visualized. Normal tricuspid valve structure. IVC at normal size with physiologic collapse. A color flow and spectral Doppler study was performed and revealed: Trace aortic regurgitation. Mild mitral regurgitation. Mitral diastolic velocities suggest reduced left ventricular relaxation c/w mild LV diastolic dysfunction (Grade I). Trace tricuspid regurgitation. Tricuspid systolic velocities suggests peak right ventricular systolic pressure of 26 mmHg. Pulmonic regurgitation present.
== END 2019-01-11 14:15 | DRG 536 ==
LOC: EDBD 06:36 → EMR 07:25 → 3E 10:22 → EDBEDREQ 12:19
DX: S72.001A Fracture of unspecified part of neck of right femur, initial encounter for closed fracture (principal); E44.1 Mild protein-calorie malnutrition; W06.XXXA Fall from bed, initial encounter; Y92.003 Bedroom of unspecified non-institutional (private) residence as the place of occurrence of the external cause; E87.6 Hypokalemia; I11.9 Hypertensive heart disease without heart failure; M19.90 Unspecified osteoarthritis, unspecified site; D50.9 Iron deficiency anemia, unspecified; L30.9 Dermatitis, unspecified; Z53.29 Procedure and treatment not carried out because of patient's decision for other reasons
CPT/HCPCS: 36415; 70450; 71045; 72192; 73502; 80048; 80053; 81003; 82550; 82962; 83540; 83550; 83735; 84443; 84484; 85007; 85025; 85610; 85730; 93005; 93306; 99285; J8499